=== PATIENT | male | born 1955 | race Caucasian/White ===

== ENCOUNTER 2020-03-01 16:08 | Inpatient (IN) | payer OTHER ==
[~2020-03-01] VITALS: Ht 175.3 cm; Wt 108.0 kg
[~2020-03-01 16:08] MED LIST: piperacillin/tazo 3.375gm/50ml 50 ML IV ONE
[2020-03-01 16:51] LABS: BASOPHILS % (AUTO) 0.3 % (0-1); EOSINOPHILS % (AUTO) 0 % (0-6); HEMATOCRIT 42.4 % (42.0-52.0); HEMOGLOBIN 14.4 g/dl (14.0-17.9); LYMPHOCYTES # (AUTO) 0.7 X10'3 (1.1-4.8); LYMPHOCYTES % (AUTO) 6.5 % (21-51); MEAN CORPUSCULAR HEMOGLOBIN 30.1 PG (27.0-31.0); MEAN CORPUSCULAR HGB CONC 33.9 g/dL (33.0-36.5); MEAN CORPUSCULAR VOLUME 88.7 FL (78-98); MEAN PLATELET VOLUME 8.6 FL (7.4-10.4); MONOCYTES # (AUTO) 0.7 X10'3 (0-0.9); MONOCYTES % (AUTO) 7.1 % (2-12); NEUTROPHILS # (AUTO) 8.7 X10'3 (1.8-7.7); NEUTROPHILS % (AUTO) 86.1 % (42-75); PLATELET COUNT 204 X10'3 (140-440); RED BLOOD COUNT 4.78 X10'6 (4.70-6.10); RED CELL DISTRIBUTION WIDTH 14.7 % (11.5-14.5); WHITE BLOOD COUNT 10.1 X10'3 (4.5-11.0)
[2020-03-01 16:59] LABS: CLARITY,URINE CLEAR (Clear); COLOR,URINE YELLOW (Yellow); GLUCOSE, URINE NEGATIVE (Neg); KETONES,URINE NEGATIVE (Neg); LEUKOCYTE ESTERASE ,URINE NEGATIVE (Neg); NITRITES, URINE NEGATIVE (Neg); OCCULT BLOOD,URINE NEGATIVE (Neg); PH,URINE 6.5 (4.8-8.0); PROTEIN,URINE NEGATIVE (Neg); UROBILINOGEN,URINE 0.2 E.U/dL (0.2-1.0)
[2020-03-01 17:01] LABS: UA COLLECTION TYPE CLN CATCH MIDSTREAM
[2020-03-01 17:07] LABS: ALANINE AMINOTRANSFERASE 60 U/L (12-78); ALBUMIN 4.2 G/DL (3.4-5.0); ALKALINE PHOSPHATASE 91 IU/L (46-116); ANION GAP 12 (8-16); ASPARTATE AMINO TRANSFERASE 22 U/L (10-37); BILIRUBIN,TOTAL 0.7 MG/DL (0.1-1.0); BLOOD UREA NITROGEN 18 MG/DL (7-18); BUN/CREATININE RATIO 17.6 (5.4-32.0); CALCIUM 9.3 MG/DL (8.5-10.1); CHLORIDE 95 MMOL/L (99-107); CREATININE 1.02 MG/DL (0.60-1.10); GLUCOSE 162 MG/DL (70-104); LIPASE 106 U/L (73-393); POTASSIUM 3.7 MMOL/L (3.5-5.1); SODIUM 131 MMOL/L (135-145); TOTAL CARBON DIOXIDE 24.5 MMOL/L (24-32); TOTAL PROTEIN 8.5 G/DL (6.4-8.2); eGFR 74 ML/MIN
[2020-03-01] MEDS ORDERED: piperacillin/tazo 3.375gm/50ml 50 ML IV ONE (19:20)
[2020-03-01 19:27] LABS: OCCULT BLOOD STOOL NEGATIVE (Neg)
[2020-03-01] MEDS ORDERED: potassium CL 10mEq/100ml bag 100 ML IV PRN ×2 (19:50)
[2020-03-01] MEDS ORDERED: magnesium 2GM in 50ml NS 50 ML IV PRN (19:50)
[2020-03-01] MEDS ORDERED: magnesium Cl slow-release 64mg tablet PO PRN (19:50)
[2020-03-01] MEDS ORDERED: magnesium 4gm in 100ml NS 100 ML IV PRN (19:50)
[2020-03-01] MEDS ORDERED: morphine 2 MG/ML inj. syringe IV PRN ×2 (19:50→23:45)
[2020-03-01] MEDS ORDERED: potassium Cl 20 mEq SR tablet PO PRN ×2 (19:50)
[2020-03-01] MEDS ORDERED: acetaminophen 650mg rectal suppository RC PRN (19:50)
[2020-03-01] MEDS ORDERED: ondansetron/PF 4mg/2ml inj IV PRN ×2 (19:50→23:45)
[2020-03-01] MEDS: K and/or MAG REPLACEMENT MC SCH (20:30)
[2020-03-01] MEDS ORDERED: ASPI81TA52 PO (20:57)
[2020-03-01] MEDS ORDERED: PIOG45TA5 PO (20:57)
[2020-03-01] MEDS ORDERED: GLIM2TAB6 PO (20:57)
[2020-03-01] MEDS ORDERED: SITA100T11 PO (20:57)
[2020-03-01] MEDS ORDERED: CHOL1POW2 PO (20:57)
[2020-03-01] MEDS ORDERED: LOSA100T57 PO (20:57)
--- NOTE | 2020-03-01 22:26 | NUR ---
called report to recovery
[2020-03-01] MEDS ORDERED: BUPIVAcaine/PF 2.5 mg/ml (0.25%) 30ml vial ONE (23:29)
[2020-03-01] MEDS ORDERED: ringers solution, lacted 1,000 ML IV SCH (23:45)
[2020-03-01] MEDS ORDERED: meperidine/PF 25mg/ml syringe IV PRN ×3 (23:45)
[2020-03-01] MEDS ORDERED: proCHLORperazine 10 MG/2 ml inj IV PRN (23:45)
[2020-03-01] MEDS ORDERED: morphine 4 MG/ML inj SYRINge IV PRN (23:45)
[2020-03-01] MEDS ORDERED: sevoflurane 250ml liquid IH ONE (23:50)
[2020-03-01] MEDS ORDERED: midazolam 2 mg/2 ml injection ONE (23:51)
[2020-03-01] MEDS ORDERED: fentaNYL /PF 50mcg/ml 5ml ampule ONE (23:52)
[2020-03-02] VITALS (13 sets, daily range): BP systolic 99–133; BP diastolic 59–84
[2020-03-02] MEDS ORDERED: neostigmine methylsulfate 1 MG/ML 10ml vial ONE (00:43)
[2020-03-02] MEDS ORDERED: ondansetron/PF 4mg/2ml inj ONE (00:43)
[2020-03-02] MEDS ORDERED: rocuronium 10mg/ml inj IV ONE (00:43)
[2020-03-02] MEDS ORDERED: LIDOcaine 2% (20mg/ml) 5ml vial ONE (00:43)
[2020-03-02] MEDS ORDERED: propofol inj 20 ML IV ONE (00:43)
[2020-03-02] MEDS ORDERED: glycopyrrolate 0.2mg/ml inj ONE (00:43)
[2020-03-02] MEDS ORDERED: labetalol 20mg/4ml (5mg/ml) syringe IV ONE (00:43)
--- NOTE | 2020-03-02 01:00 | NUR ---
Received from OR via , accompanied by Anesthesiologist DR BRAND and report given by Anesthesiolgist. PT WAKES TO VOICE, SNORING RESP, SKIN WARM AND PINK, 3 BA'S ON ABD CD, SCD'S, RIGHT AC 18G, RIGHT FA 20G WITH NS 100ML/HR, VSS, NO C/O PAIN.
[2020-03-02] MEDS ORDERED: HYDROcodone/acetaminophen 5mg/325mg tablet PO PRN (01:25)
--- NOTE | 2020-03-02 01:30 | NUR ---
Report called to receiving nurse. Transferred via BED Belongings . Special Issues communicated to receiving nurse GERHARD GLEZ. PT IS AWAKE, ALERT, MOVING EXT X 4 , BA'S ON ABD CD, PIV X 2 PATENT, NO C/O PAIN, VSS, SCD'S, BETTIE ICE WATER, PT MEETS DISCHARGE CRITERIA.
[2020-03-02 05:44] LABS: BASOPHILS % (AUTO) 0.2 % (0-1); EOSINOPHILS % (AUTO) 0 % (0-6); HEMATOCRIT 37.6 % (42.0-52.0); HEMOGLOBIN 12.8 g/dl (14.0-17.9); LYMPHOCYTES # (AUTO) 1.1 X10'3 (1.1-4.8); LYMPHOCYTES % (AUTO) 12.7 % (21-51); MEAN CORPUSCULAR HEMOGLOBIN 30.3 PG (27.0-31.0); MEAN CORPUSCULAR HGB CONC 34.1 g/dL (33.0-36.5); MEAN CORPUSCULAR VOLUME 88.9 FL (78-98); MEAN PLATELET VOLUME 8.7 FL (7.4-10.4); MONOCYTES # (AUTO) 0.6 X10'3 (0-0.9); MONOCYTES % (AUTO) 7.2 % (2-12); NEUTROPHILS # (AUTO) 6.6 X10'3 (1.8-7.7); NEUTROPHILS % (AUTO) 79.9 % (42-75); PLATELET COUNT 186 X10'3 (140-440); RED BLOOD COUNT 4.23 X10'6 (4.70-6.10); RED CELL DISTRIBUTION WIDTH 14.5 % (11.5-14.5); WHITE BLOOD COUNT 8.3 X10'3 (4.5-11.0)
[2020-03-02 05:55] LABS: ALBUMIN 3.3 G/DL (3.4-5.0); ANION GAP 9 (8-16); BLOOD UREA NITROGEN 13 MG/DL (7-18); BUN/CREATININE RATIO 11.6 (5.4-32.0); CALCIUM 7.6 MG/DL (8.5-10.1); CHLORIDE 101 MMOL/L (99-107); CREATININE 1.12 MG/DL (0.60-1.10); GLUCOSE 211 MG/DL (70-104); MAGNESIUM 2.1 MG/DL (1.5-2.4); POTASSIUM 3.9 MMOL/L (3.5-5.1); SODIUM 134 MMOL/L (135-145); TOTAL CARBON DIOXIDE 24.1 MMOL/L (24-32); eGFR 66 ML/MIN
--- NOTE | 2020-03-02 06:38 | NUR ---
Problems reprioritized. Patient report given, questions answered & plan of care reviewed with NEWTON Trimble.
--- NOTE | 2020-03-02 07:01 | NUR ---
Patient in room ORTHO 4021. I have received report from Natali GLEZ and had the opportunity to ask questions and assume patient care.
[2020-03-02] MEDS: K and/or MAG REPLACEMENT MC SCH ×2 (08:00→20:00)
[2020-03-02] MEDS ORDERED: chloestyramine/aspartame 4gm packet PO SCH (08:00)
[2020-03-02 08:05] LABS: HEMOGLOBIN A1C 7.6 % (4.5-6.2)
[2020-03-02] MEDS: piperacillin/tazo 3.375gm/50ml 50 ML IV SCH ×3 (08:47→23:54)
[2020-03-02] MEDS: aspirin 81mg tablet.DR PO SCH (08:48)
[2020-03-02] MEDS: losartan 50mg tablet PO SCH (08:49)
--- NOTE | 2020-03-02 13:18 | NUR ---
DM consult: Pt with A1c 7.6%, written DM education with RD contact information placed in patient's chart. Will remain available. Addendum: 03/02/20 at [address] Amended: Links added.
--- NOTE | 2020-03-02 13:47 | NUR ---
Student documentation: I have reviewed all interventions, assessments performed and documented by Tressa BRASHER with [facility] . Student Medication Administration: For all medication-pass' in the time frame of 0600 to 1830, all medications were reviewed, dispensed, administered and documented per hospital policy by Tressa BRASHER with [facility].
--- NOTE | 2020-03-02 15:09 | NUR ---
Pt was given Incentive spirometer. educated and encouraged to use q hour
--- NOTE | 2020-03-02 15:14 | NUR ---
PAGER ID: [phone] MESSAGE: Ted Shah [id number] an order for insulin is needed. He has meet protocol. BS today are 171 and 178. Thank you. Nai [phone] Orders received for diabetic protocol.
[2020-03-02] MEDS ORDERED: glucagon, human recombinant 1mg kit SUBCUT PRN (15:15)
[2020-03-02] MEDS ORDERED: dextrose 50%-water 50ml dispensing syringe IV PRN ×2 (15:15)
[2020-03-02] MEDS ORDERED: dextrose ORAL solution 15 GM/59 ML bottle PO PRN ×2 (15:15)
[2020-03-02] MEDS ORDERED: MESSAGE TO PHARMACY PO ONE (15:15)
--- NOTE | 2020-03-02 15:22 | NUR ---
Patient in room ORTHO 4021. I have received report from Natali GLEZ and had the opportunity to ask questions and assume patient care.
--- NOTE | 2020-03-02 15:50 | NUR ---
Problems reprioritized. Patient report given, questions answered & plan of care reviewed with Talisha GLEZ.
--- NOTE | 2020-03-02 15:50 | NUR ---
Patient in room ORTHO 4021. I have received report from NEWTON Trimble and had the opportunity to ask questions and assume patient care.
--- NOTE | 2020-03-02 16:23 | NUR ---
Pt arrived to surgical floor via wheelchair, accompanied by RN and student RN, with all belongings.
--- NOTE | 2020-03-02 17:00 | NUR ---
I have reviewed and agree with physical assessment charted by RN prior in shift.
--- NOTE | 2020-03-02 17:25 | NUR ---
Problems reprioritized. Patient report given, questions answered & plan of care reviewed with Talisha GLEZ.
--- NOTE | 2020-03-02 18:15 | NUR ---
Problems reprioritized. Patient report given, questions answered & plan of care reviewed with NEWTON Wick.
--- NOTE | 2020-03-02 18:15 | NUR ---
Patient in room [facility] 345. I have received report from Talisha GLEZ and had the opportunity to ask questions and assume patient care.
[2020-03-02] MEDS: insulin Lispro (HumaLOG) vial - multi-dose SQ SCH (19:28)
[2020-03-02] MEDS: lactobacillus rhamnosus 10,000 MMU CELLS/CAPSULE PO SCH (19:29)
[2020-03-02] MEDS: insulin glargine (Lantus) pen - multi-dose SQ SCH (21:13)
[2020-03-03] VITALS: BP 120/75
--- NOTE | 2020-03-03 06:00 | NUR ---
Problems reprioritized. Patient report given, questions answered & plan of care reviewed with Patricia GLEZ.
[2020-03-03 06:03] LABS: BASOPHILS % (AUTO) 0.3 % (0-1); EOSINOPHILS # (AUTO) 0.1 X10'3 (0-0.9); HEMATOCRIT 38.1 % (42.0-52.0); HEMOGLOBIN 12.7 g/dl (14.0-17.9); LYMPHOCYTES # (AUTO) 1.1 X10'3 (1.1-4.8); LYMPHOCYTES % (AUTO) 17.5 % (21-51); MEAN CORPUSCULAR HGB CONC 33.3 g/dL (33.0-36.5); MEAN CORPUSCULAR VOLUME 89.9 FL (78-98); MEAN PLATELET VOLUME 8.7 FL (7.4-10.4); MONOCYTES # (AUTO) 0.5 X10'3 (0-0.9); MONOCYTES % (AUTO) 8.4 % (2-12); NEUTROPHILS # (AUTO) 4.6 X10'3 (1.8-7.7); NEUTROPHILS % (AUTO) 72.8 % (42-75); PLATELET COUNT 181 X10'3 (140-440); RED BLOOD COUNT 4.23 X10'6 (4.70-6.10); WHITE BLOOD COUNT 6.3 X10'3 (4.5-11.0)
[2020-03-03 06:12] LABS: ALBUMIN 3.1 G/DL (3.4-5.0); ANION GAP 7 (8-16); BLOOD UREA NITROGEN 16 MG/DL (7-18); CHLORIDE 102 MMOL/L (99-107); GLUCOSE 166 MG/DL (70-104); MAGNESIUM 2.3 MG/DL (1.5-2.4); POTASSIUM 3.7 MMOL/L (3.5-5.1); SODIUM 135 MMOL/L (135-145); TOTAL CARBON DIOXIDE 26.5 MMOL/L (24-32)
[2020-03-03 06:23] LABS: BUN/CREATININE RATIO 13.3 (5.4-32.0); CALCIUM 8.2 MG/DL (8.5-10.1); eGFR 61 ML/MIN
[2020-03-03 07:00] VITALS: BP 126/77
[2020-03-03] MEDS: K and/or MAG REPLACEMENT MC SCH ×2 (07:10→20:00)
[2020-03-03] MEDS: piperacillin/tazo 3.375gm/50ml 50 ML IV SCH ×3 (08:23→23:56)
[2020-03-03] MEDS: losartan 50mg tablet PO SCH (08:24)
[2020-03-03] MEDS: lactobacillus rhamnosus 10,000 MMU CELLS/CAPSULE PO SCH ×2 (08:24→20:20)
[2020-03-03] MEDS: aspirin 81mg tablet.DR PO SCH (08:24)
[2020-03-03] MEDS: insulin Lispro (HumaLOG) vial - multi-dose SQ SCH ×3 (09:01→18:22)
[2020-03-03 11:00] VITALS: BP 137/67
[2020-03-03] MEDS: chloestyramine/aspartame 4gm packet PO SCH (16:38)
--- NOTE | 2020-03-03 18:42 | NUR ---
Problems reprioritized. Patient report given, questions answered & plan of care reviewed with NEWTON Lutz.
[2020-03-03 19:00] VITALS: BP 125/74
[2020-03-03] MEDS ORDERED: bisacodyl 10mg suppository rectal RC PRN (19:30)
[2020-03-03 19:38] VITALS: BP 125/74
[2020-03-03] MEDS: insulin glargine (Lantus) pen - multi-dose SQ SCH (23:37)
[2020-03-03 23:56] VITALS: BP 127/74
[2020-03-04 05:23] LABS: BASOPHILS % (AUTO) 0.4 % (0-1); EOSINOPHILS # (AUTO) 0.1 X10'3 (0-0.9); EOSINOPHILS % (AUTO) 2.5 % (0-6); HEMATOCRIT 37.2 % (42.0-52.0); HEMOGLOBIN 12.6 g/dl (14.0-17.9); LYMPHOCYTES # (AUTO) 1.4 X10'3 (1.1-4.8); LYMPHOCYTES % (AUTO) 23.1 % (21-51); MEAN CORPUSCULAR HEMOGLOBIN 30.3 PG (27.0-31.0); MEAN CORPUSCULAR HGB CONC 33.8 g/dL (33.0-36.5); MEAN CORPUSCULAR VOLUME 89.7 FL (78-98); MEAN PLATELET VOLUME 8.9 FL (7.4-10.4); MONOCYTES # (AUTO) 0.5 X10'3 (0-0.9); MONOCYTES % (AUTO) 8.5 % (2-12); NEUTROPHILS # (AUTO) 3.9 X10'3 (1.8-7.7); NEUTROPHILS % (AUTO) 65.5 % (42-75); PLATELET COUNT 198 X10'3 (140-440); RED BLOOD COUNT 4.15 X10'6 (4.70-6.10); RED CELL DISTRIBUTION WIDTH 14.6 % (11.5-14.5); WHITE BLOOD COUNT 5.9 X10'3 (4.5-11.0)
[2020-03-04 05:30] LABS: ALBUMIN 3.1 G/DL (3.4-5.0); ANION GAP 9 (8-16); BLOOD UREA NITROGEN 12 MG/DL (7-18); BUN/CREATININE RATIO 10.6 (5.4-32.0); CALCIUM 8.5 MG/DL (8.5-10.1); CHLORIDE 100 MMOL/L (99-107); CREATININE 1.13 MG/DL (0.60-1.10); GLUCOSE 143 MG/DL (70-104); MAGNESIUM 2.4 MG/DL (1.5-2.4); POTASSIUM 3.5 MMOL/L (3.5-5.1); SODIUM 136 MMOL/L (135-145); eGFR 65 ML/MIN
--- NOTE | 2020-03-04 06:26 | NUR ---
Problems reprioritized. Patient report given, questions answered & plan of care reviewed with MADDY. Addendum: 03/04/20 at 0627 by Nils Bravo RN Amended: Links added.
--- NOTE | 2020-03-04 06:30 | NUR ---
Patient in room [facility] 345. I have received report from Bolivar GLEZ and had the opportunity to ask questions and assume patient care.
--- NOTE | 2020-03-04 06:39 | NUR ---
Patient in room [facility] 345. I have received report from Karolina and had the opportunity to ask questions and assume patient care.
[2020-03-04 07:00] VITALS: BP 134/76
[2020-03-04 07:26] VITALS: BP 134/76
[2020-03-04] MEDS: K and/or MAG REPLACEMENT MC SCH (08:00)
[2020-03-04] MEDS: losartan 50mg tablet PO SCH (08:39)
[2020-03-04] MEDS: lactobacillus rhamnosus 10,000 MMU CELLS/CAPSULE PO SCH (08:40)
[2020-03-04] MEDS: aspirin 81mg tablet.DR PO SCH (08:41)
[2020-03-04] MEDS: piperacillin/tazo 3.375gm/50ml 50 ML IV SCH ×2 (08:44→15:28)
[2020-03-04] MEDS: insulin Lispro (HumaLOG) vial - multi-dose SQ SCH ×2 (09:44→18:34)
--- NOTE | 2020-03-04 10:41 | NUR ---
Student Medication Administration: For this medication-pass time frame, all medication were reviewed, dispensed, administered and documented per hospital policy by Capo patient care nursing assistant.
[2020-03-04 11:00] VITALS: BP 131/64
--- NOTE | 2020-03-04 12:05 | NUR ---
Student documentation: I have reviewed and agree with all interventions, assessments performed and documented by Capo, registered nursing professor.
--- NOTE | 2020-03-04 12:18 | NUR ---
Problems reprioritized. Patient report given, questions answered & plan of care reviewed with Kaitlyn GLEZ.
[2020-03-04] MEDS: chloestyramine/aspartame 4gm packet PO SCH (15:00)
[2020-03-04] MEDS ORDERED: AMOX-580 PO (15:54)
--- NOTE | 2020-03-04 18:50 | NUR ---
Patient in room [facility] 345. I have received report from Kaitlyn GLEZ and had the opportunity to ask questions and assume patient care.
--- NOTE | 2020-03-04 18:59 | NUR ---
Problems reprioritized. Patient report given, questions answered & plan of care reviewed with Kaylan GLEZ. Addendum: 03/04/20 at 1907 by Kaylan Lynn RN patient is currently receiving a final dose of zosyn and then will be discharging home.
--- NOTE | 2020-03-04 19:36 | NUR ---
Patients brendan has now fully infused and resource nurse helping to take patient downstairs to lobby via w/c.
--- NOTE | 2020-03-04 19:45 | NUR ---
Patient escorted with all belongings via W/C to front lobby where awaiting to take patient home via private vehicle.
== END 2020-03-04 22:00 | disposition home or self-care (01) | DRG 342 ==
LOC: ER 16:09 → ED HOLD 19:50 → PACU 23:15 → ORTHO 4S 03-02 01:40 → SUR 3N 03-02 16:10
PROVIDERS: ADMIT Internal Medicine; ATTEND Family Medicine
PROC: 0DTJ4ZZ Resection of Appendix, Percutaneous Endoscopic Approach (ICD-10-PCS; principal; 2020-03-01 23:50)
DX: K35.80 Unspecified acute appendicitis (principal); E87.1 Hypo-osmolality and hyponatremia; E11.9 Type 2 diabetes mellitus without complications; I10 Essential (primary) hypertension; Z91.041 Radiographic dye allergy status; Z79.899 Other long term (current) drug therapy; Z79.82 Long term (current) use of aspirin
CPT/HCPCS: 96365; 99285; Z7506; Z7508; 36415; 74176; 80048; 80053; 81003; 82272; 82948; 83036; 83690; 83735; 85025; 87081; 93005; A4215; A4618; A7000; G0378; J0694; J1815; J2001; J2250; J2405; J2543; J2704; J2710; J3010; J3490; J7030

== ENCOUNTER 2024-01-06 17:48 | Inpatient (IN) | payer MEDICARE, OTHER ==
[~2024-01-06] VITALS: Ht 175.3 cm; Wt 105.2 kg
[~2024-01-06 17:48] MED LIST changes: +AMOX-580 PO; +ASPI81TA52 PO; +CHOL1POW2 PO; +GLIM2TAB6 PO; +LOSA100T58 PO; +PIOG45TA5 PO; +SITA100T11 PO; -piperacillin/tazo 3.375gm/50ml 50 ML IV ONE
[2024-01-06] MEDS: piperacillin/tazo 3.375gm/50ml 50 ML IV ONE (19:36)
[2024-01-06 19:50] LABS: EOSINOPHILS # (AUTO) 0.1 X10'3 (0-0.9); MEAN PLATELET VOLUME 8.5 FL (7.4-10.4); WHITE BLOOD COUNT 6.6 X10'3 (4.5-11.0)
[2024-01-06 19:52] LABS: BASOPHILS % (AUTO) 0.3 % (0-1); EOSINOPHILS % (AUTO) 0.9 % (0-6); HEMATOCRIT 45.3 % (42.0-52.0); HEMOGLOBIN 15.4 g/dl (14.0-17.9); LYMPHOCYTES # (AUTO) 0.9 X10'3 (1.1-4.8); MEAN CORPUSCULAR HGB CONC 33.9 g/dL (33.0-36.5); MEAN CORPUSCULAR VOLUME 88.6 FL (78-98); MONOCYTES # (AUTO) 0.4 X10'3 (0-0.9); MONOCYTES % (AUTO) 6.4 % (2-12); NEUTROPHILS # (AUTO) 5.2 X10'3 (1.8-7.7); NEUTROPHILS % (AUTO) 78.4 % (42-75); PLATELET COUNT 242 X10'3 (140-440); RED BLOOD COUNT 5.11 X10'6 (4.70-6.10); RED CELL DISTRIBUTION WIDTH 14.7 % (11.5-14.5)
[2024-01-06 19:54] LABS: ALBUMIN 4.2 G/DL (3.4-5.0); ANION GAP 10 (8-16); BLOOD UREA NITROGEN 14 MG/DL (7-18); BUN/CREATININE RATIO 12.6 (10.0-20.0); CALCIUM 8.7 MG/DL (8.5-10.1); CHLORIDE 102 MMOL/L (99-107); CREATININE 1.11 MG/DL (0.60-1.10); GLUCOSE 90 MG/DL (70-104); MAGNESIUM 2.5 MG/DL (1.5-2.4); POTASSIUM 3.8 MMOL/L (3.5-5.1); SODIUM 139 MMOL/L (135-145); TOTAL CARBON DIOXIDE 27.1 MMOL/L (24-32); eCRCL 64 ML/MIN; eGFR 66 ML/MIN
[2024-01-06] MEDS: vancomycin/NS 1 GM ADD-VANTAGE 250 ML IV ONE (20:25)
[2024-01-06] MEDS: normal saline 1000ml 1,000 ML IV SCH (21:05)
[2024-01-06] MEDS ORDERED: ondansetron/PF 4mg/2ml inj IV PRN (21:05)
[2024-01-06] MEDS ORDERED: potassium Cl 40MEQ/1/2NS 520ml 520 ML IV PRN (21:05)
[2024-01-06] MEDS ORDERED: magnesium Cl slow-release 64mg tablet PO PRN (21:05)
[2024-01-06] MEDS ORDERED: magnesium sulf-water 4G/100mL 100 ML IV PRN (21:05)
[2024-01-06] MEDS ORDERED: magnesium sulf-water 2g/50mL 50 ML IV PRN (21:05)
[2024-01-06] MEDS ORDERED: potassium Cl 20 mEq SR tablet PO PRN ×2 (21:05)
[2024-01-06] MEDS ORDERED: mag hydrox/Alum hydrox/simeth 30ml oral suspension PO PRN (21:05)
[2024-01-06] MEDS ORDERED: magnesium hydroxide 30ml (MOM) UD suspension PO PRN (21:05)
[2024-01-06] MEDS ORDERED: DEXTROSE 15 GM of carb/4 tabs (each vial/BOTTLE has 4 tablets) PO PRN ×2 (21:35)
[2024-01-06] MEDS ORDERED: dextrose 50%-water 50ml dispensing syringe IV PRN ×2 (21:35)
[2024-01-06] MEDS ORDERED: glucagon, human recombinant 1mg kit SUBCUT PRN (21:35)
[2024-01-06] MEDS: losartan 50mg tablet PO SCH (21:35)
[2024-01-06] MEDS: normal saline 1000ml 1,000 ML IV ONE (21:37)
[2024-01-06 23:07] LABS: BILIRUBIN,URINE NEGATIVE (Neg); CLARITY,URINE CLEAR (Clear); COLOR,URINE YELLOW (Yellow); GLUCOSE, URINE >=1000 mg/dl (Neg); KETONES,URINE TRACE mg/dl (Neg); LEUKOCYTE ESTERASE ,URINE NEGATIVE (Neg); NITRITES, URINE NEGATIVE (Neg); OCCULT BLOOD,URINE NEGATIVE (Neg); PH,URINE 7.5 (4.8-8.0); PROTEIN,URINE NEGATIVE (Neg); UROBILINOGEN,URINE 0.2 E.U/dL (0.2-1.0)
[2024-01-06 23:08] LABS: UA COLLECTION TYPE CLN CATCH MIDSTREAM
[2024-01-06 23:12] LABS: MUCUS STRANDS FEW /LPF (Neg); SQUAMOUS EPITHELIAL CELL,UR FEW /LPF (FEW)
[2024-01-06 23:13] LABS: BACTERIA,URINE FEW /HPF (Neg); RBC,URINE 0-2 /HPF (0-2); WBC,URINE 0-4 /HPF (0-4)
[2024-01-06 23:21] VITALS: BP 128/65; PULSE 94; RESP 20; TEMP 97.8; O2SAT 97
[2024-01-07] MEDS: piperacillin/tazo 3.375gm/50ml 50 ML IV SCH (00:16)
[2024-01-07] MEDS: acetaminophen 1,000mg/100ml IV 100 ML IV ONE (02:02)
[2024-01-07] MEDS: vancomycin/NS 1 GM ADD-VANTAGE 250 ML IV SCH ×2 (05:32→19:36)
[2024-01-07 06:30] VITALS: BP 132/72; PULSE 79; RESP 18; TEMP 96.8; O2SAT 95
[2024-01-07] MEDS: INSULIN LISPRO 100 UNIT/ML INSULN.PEN MULTI-DOSE SQ SCH ×2 (07:00→09:00)
[2024-01-07] MEDS: docusate sod 100mg capsule PO SCH (07:31)
[2024-01-07] MEDS: enoxaparin 40mg/0.4ml syringe SUBCUT SCH (07:32)
[2024-01-07 07:57] LABS: BASOPHILS % (AUTO) 0.3 % (0-1); EOSINOPHILS # (AUTO) 0.1 X10'3 (0-0.9); EOSINOPHILS % (AUTO) 1.6 % (0-6); HEMATOCRIT 40.5 % (42.0-52.0); HEMOGLOBIN 13.4 g/dl (14.0-17.9); LYMPHOCYTES # (AUTO) 1.1 X10'3 (1.1-4.8); LYMPHOCYTES % (AUTO) 18.9 % (21-51); MEAN CORPUSCULAR HEMOGLOBIN 29.4 PG (27.0-31.0); MEAN CORPUSCULAR HGB CONC 33.1 g/dL (33.0-36.5); MEAN CORPUSCULAR VOLUME 88.9 FL (78-98); MEAN PLATELET VOLUME 8.7 FL (7.4-10.4); MONOCYTES # (AUTO) 0.6 X10'3 (0-0.9); MONOCYTES % (AUTO) 10.1 % (2-12); NEUTROPHILS # (AUTO) 3.9 X10'3 (1.8-7.7); NEUTROPHILS % (AUTO) 69.1 % (42-75); PLATELET COUNT 234 X10'3 (140-440); RED BLOOD COUNT 4.55 X10'6 (4.70-6.10); RED CELL DISTRIBUTION WIDTH 15.4 % (11.5-14.5); WHITE BLOOD COUNT 5.6 X10'3 (4.5-11.0)
[2024-01-07 08:00] VITALS: RESP 16; O2SAT 98
[2024-01-07] MEDS: K and/or MAG REPLACEMENT MC SCH (08:00)
[2024-01-07 08:18] LABS: ALBUMIN 3.1 G/DL (3.4-5.0); ANION GAP 5 (8-16); BLOOD UREA NITROGEN 15 MG/DL (7-18); BUN/CREATININE RATIO 14.7 (10.0-20.0); CALCIUM 8.2 MG/DL (8.5-10.1); CHLORIDE 107 MMOL/L (99-107); CHOL/HDL RATIO 3.1 (0.00-4.99); CHOLESTEROL 170 MG/DL (0-200); CREATININE 1.02 MG/DL (0.60-1.10); GLUCOSE 119 MG/DL (70-104); HDL CHOLESTEROL 55 MG/DL (35-60); LDL CHOLESTEROL 93 MG/DL (50-100); MAGNESIUM 2.4 MG/DL (1.5-2.4); POTASSIUM 3.9 MMOL/L (3.5-5.1); SODIUM 137 MMOL/L (135-145); TOTAL CARBON DIOXIDE 25.3 MMOL/L (24-32); TRIGLYCERIDES 67 MG/DL (20-135); eCRCL 69 ML/MIN; eGFR 73 ML/MIN
[2024-01-07 10:00] VITALS: BP 112/71; PULSE 76; RESP 18; TEMP 98.4; O2SAT 95
[2024-01-07] MEDS: JUVEN Smoothie Arginine/Glut./Ca2+Bmb (Juven 19.3pkt) 240ml cup PO SCH (17:48)
[2024-01-07 18:00] VITALS: BP 144/104; PULSE 85; RESP 16; TEMP 97.3; O2SAT 99
[2024-01-07 20:00] VITALS: RESP 16; O2SAT 99
[2024-01-07] MEDS: insulin glargine (Lantus) pen - multi-dose SQ SCH (21:00)
[2024-01-07 22:00] VITALS: BP 121/61; PULSE 73; RESP 18; TEMP 99.1; O2SAT 95
[2024-01-08 06:30] VITALS: BP 150/78; PULSE 67; RESP 17; TEMP 97.2; O2SAT 94
[2024-01-08 06:35] LABS: BASOPHILS % (AUTO) 0.4 % (0-1); EOSINOPHILS # (AUTO) 0.1 X10'3 (0-0.9); EOSINOPHILS % (AUTO) 2.3 % (0-6); HEMATOCRIT 40.3 % (42.0-52.0); HEMOGLOBIN 13.6 g/dl (14.0-17.9); LYMPHOCYTES # (AUTO) 1.2 X10'3 (1.1-4.8); LYMPHOCYTES % (AUTO) 22.1 % (21-51); MEAN CORPUSCULAR HGB CONC 33.7 g/dL (33.0-36.5); MEAN PLATELET VOLUME 8.5 FL (7.4-10.4); MONOCYTES # (AUTO) 0.5 X10'3 (0-0.9); MONOCYTES % (AUTO) 8.5 % (2-12); NEUTROPHILS # (AUTO) 3.7 X10'3 (1.8-7.7); NEUTROPHILS % (AUTO) 66.7 % (42-75); PLATELET COUNT 219 X10'3 (140-440); RED BLOOD COUNT 4.53 X10'6 (4.70-6.10); WHITE BLOOD COUNT 5.6 X10'3 (4.5-11.0)
[2024-01-08] MEDS: VANCOMYCIN LEVEL IV ONE (06:35)
[2024-01-08 06:39] LABS: ALBUMIN 3.1 G/DL (3.4-5.0); ANION GAP 8 (8-16); BLOOD UREA NITROGEN 15 MG/DL (7-18); BUN/CREATININE RATIO 15.3 (10.0-20.0); CALCIUM 8.6 MG/DL (8.5-10.1); CHLORIDE 105 MMOL/L (99-107); CREATININE 0.98 MG/DL (0.60-1.10); GLUCOSE 167 MG/DL (70-104); POTASSIUM 4.2 MMOL/L (3.5-5.1); SODIUM 137 MMOL/L (135-145); TOTAL CARBON DIOXIDE 24.2 MMOL/L (24-32); VANCOMYCIN,TROUGH 8.9 ug/mL (10.0-20.0); eCRCL 72 ML/MIN; eGFR 76 ML/MIN
[2024-01-08 08:00] VITALS: RESP 17; O2SAT 94
[2024-01-08 10:00] VITALS: BP 140/61; PULSE 51; RESP 18; TEMP 98; O2SAT 96
[2024-01-08] MEDS ORDERED: DAPA5TAB PO (12:18)
[2024-01-08 20:00] VITALS: RESP 17; O2SAT 94
[2024-01-08] MEDS: VANCOMYCIN 1,500MG in NS 300ml IVPB IV SCH (20:07)
[2024-01-09 07:02] LABS: BASOPHILS % (AUTO) 0.5 % (0-1); EOSINOPHILS # (AUTO) 0.1 X10'3 (0-0.9); EOSINOPHILS % (AUTO) 3.3 % (0-6); HEMATOCRIT 41.3 % (42.0-52.0); HEMOGLOBIN 13.7 g/dl (14.0-17.9); LYMPHOCYTES # (AUTO) 1.1 X10'3 (1.1-4.8); LYMPHOCYTES % (AUTO) 24.7 % (21-51); MEAN CORPUSCULAR HEMOGLOBIN 29.6 PG (27.0-31.0); MEAN CORPUSCULAR HGB CONC 33.2 g/dL (33.0-36.5); MEAN CORPUSCULAR VOLUME 89.1 FL (78-98); MEAN PLATELET VOLUME 8.5 FL (7.4-10.4); MONOCYTES # (AUTO) 0.4 X10'3 (0-0.9); MONOCYTES % (AUTO) 8.9 % (2-12); NEUTROPHILS # (AUTO) 2.8 X10'3 (1.8-7.7); NEUTROPHILS % (AUTO) 62.6 % (42-75); PLATELET COUNT 239 X10'3 (140-440); RED BLOOD COUNT 4.64 X10'6 (4.70-6.10); WHITE BLOOD COUNT 4.5 X10'3 (4.5-11.0)
[2024-01-09 07:13] LABS: ALBUMIN 3.4 G/DL (3.4-5.0); ANION GAP 7 (8-16); BLOOD UREA NITROGEN 16 MG/DL (7-18); BUN/CREATININE RATIO 16.2 (10.0-20.0); CALCIUM 8.9 MG/DL (8.5-10.1); CHLORIDE 103 MMOL/L (99-107); CREATININE 0.99 MG/DL (0.60-1.10); GLUCOSE 175 MG/DL (70-104); POTASSIUM 4.2 MMOL/L (3.5-5.1); SODIUM 136 MMOL/L (135-145); TOTAL CARBON DIOXIDE 25.8 MMOL/L (24-32); eCRCL 71 ML/MIN; eGFR 75 ML/MIN
[2024-01-09 18:00] VITALS: BP 133/72; PULSE 76; RESP 18; TEMP 97.8; O2SAT 98
[2024-01-09] MEDS: acetaminophen 325mg tablet PO PRN (21:00)
[2024-01-09] MEDS: piperacillin/tazo 3.375gm/50ml 50 ML IV SCH (21:54)
[2024-01-09 22:00] VITALS: BP 121/75; PULSE 74; RESP 15; TEMP 97.7; O2SAT 95
[2024-01-10 06:00] VITALS: BP 139/74; PULSE 63; RESP 16; TEMP 97.7; O2SAT 97
[2024-01-10] MEDS: VANCOMYCIN LEVEL IV ONE (06:39)
[2024-01-10 07:08] LABS: ALBUMIN 3.3 G/DL (3.4-5.0); ANION GAP 8 (8-16); BLOOD UREA NITROGEN 21 MG/DL (7-18); CHLORIDE 102 MMOL/L (99-107); CREATININE 1.05 MG/DL (0.60-1.10); GLUCOSE 161 MG/DL (70-104); MAGNESIUM 1.8 MG/DL (1.5-2.4); POTASSIUM 4.2 MMOL/L (3.5-5.1); SODIUM 137 MMOL/L (135-145); TOTAL CARBON DIOXIDE 26.8 MMOL/L (24-32); VANCOMYCIN,TROUGH 16.7 ug/mL (10.0-20.0); eCRCL 67 ML/MIN; eGFR 70 ML/MIN
[2024-01-10 10:00] VITALS: BP 119/69; PULSE 85; RESP 14; TEMP 97.5; O2SAT 96
[2024-01-10 12:02] LABS: BASOPHILS % 0 % (0-2); EOSINOPHILS # (AUTO) 0.2 X10'3 (0-0.9); EOSINOPHILS % (AUTO) 3 % (0-5); HEMATOCRIT 42.1 % (43.5-53.7); LYMPHOCYTES # (AUTO) 1.4 X10'3 (0.6-4.1); LYMPHOCYTES % 26 % (24-44); MEAN CORPUSCULAR HEMOGLOBIN 29.3 PG (27-31.2); MEAN CORPUSCULAR HGB CONC 33.1 % (32-36); MEAN CORPUSCULAR VOLUME 88.3 FL (81-97); MONOCYTES # (AUTO) 0.4 X10'3 (0-0.9); MONOCYTES % 8 % (0-12); NEUTROPHILS # (AUTO) 3.3 X10'3 (>=1.4); PLATELET COUNT 238 X10'3 (130-400); RED BLOOD COUNT 4.77 X10'6 (4.30-5.90); RED CELL DISTRIBUTION WIDTH 14.8 % (11-16); SEGMENTED NEUTROPHILS % 62 % (36-66); WHITE BLOOD COUNT 5.4 X10'3 (4.5-11.0)
[2024-01-10] MEDS ORDERED: SULF1TAB49 PO (15:18)
== END 2024-01-10 18:35 | disposition home or self-care (01) | DRG 602 ==
LOC: ER 17:49 → ED HOLD 21:07 → ORTHO 4S 22:35
PROVIDERS: ADMIT Internal Medicine Critical Care Medicine; ATTEND Internal Medicine
DX: L03.115 Cellulitis of right lower limb (principal); N17.0 Acute kidney failure with tubular necrosis; L97.919 Non-pressure chronic ulcer of unspecified part of right lower leg with unspecified severity; E11.622 Type 2 diabetes mellitus with other skin ulcer; I10 Essential (primary) hypertension; Z79.84 Long term (current) use of oral hypoglycemic drugs
CPT/HCPCS: 36415; 71045; 80048; 80061; 80202; 81001; 82948; 83036; 83605; 83735; 84145; 85025; 85651; 86140; 87040; 87070; 87075; 87077; 87081; 87186; 93005; 93925; 93970; 96365; 96367; 99285; A6213; A6223; A6253; A6258; A6446; A6449; G0378; J0131; J1650; J1815; J2543; J3370; J7030; J7040